=== PATIENT | male | born 1995 | race Two or more races ===

== ENCOUNTER 2021-10-14 09:37 | Day surgery (SDC) | payer OTHER, SELFPAY ==
[2021-10-14 09:46] VITALS: BP 120/76; PULSE 76; RESP 16; TEMP 36.2; O2SAT 74; BMI 29.9
--- NOTE | 2021-10-14 10:23 | ED.GENADULT ---
HPI - General Adult General Time Seen by Provider: 10:23 Date Seen: 10/14/21 Chief complaint: Abdominal Pain Stated complaint: URQ Pain Time Seen by Provider: 10/14/21 10:22 Source: patient and RN notes reviewed Mode of arrival: ambulatory Limitations: language barrier (Seen with the aid of a [employer] co founder) History of Present Illness HPI narrative: Patient is a 25-year-old male coming in with right upper quadrant abdominal pain. Started this morning. He has not ate or drank anything, no vomiting. It is not going away. He has not tried anything for the pain. Had an episode maybe about 6 months ago but it was not as severe. He did have a bowel movement this morning thinking that maybe that would alleviate the pain. With wiping there was a little blood on the tissue. There was some pain with defecation at the time. He has noted no fevers chills, has not been sick with any cough or cold symptoms. He has had no prior abdominal surgeries. He has not had any urinary symptoms. He ate a normal meal last night. Does drink some alcohol. He points to the pain in the right upper quadrant and seems to be constant since this morning. Denies any trauma. He believes his dad has had his gallbladder out, either his mama or his dad has possibly had their appendix out as well. He is not aware of any family history of kidney stones. Related Data Home Medications Medication Instructions Recorded Confirmed No Known Home Medications 10/14/21 10/14/21 Allergies Allergy/AdvReac Type Severity Reaction Status Date / Time No Known Drug Allergies Allergy Verified 10/14/21 09:57 Review of Systems Status of ROS: Reports: 10 or more systems reviewed and unremarkable except as noted in History and [facility] History (Updated 10/14/21 @ 13:51 by Philomena Barfield MD) No significant past medical history Surgical History (Updated 10/14/21 @ 10:23 by Teri Hawkins RN) No significant past surgical history Social History (Updated 10/14/21 @ 13:27 by Lucina Bentley MD) 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 Smoking Status: Never smoker Do you use any of these nicotine containing products: None Second hand tobacco smoke exposure: No How often do you have a drink containing alcohol: 2-3 times a week How many standard drinks containing alcohol do you have on a typical day: 10 or more How often do you have six or more drinks on one occasion: Weekly AUDIT-C Alcohol total score: 10 Non-prescribed substance use: denies use service: No Exam Const: Vital Signs, click to edit/add: Vital Signs - 24 hr 10/14/21 09:46 10/14/21 11:14 10/14/21 13:23 Temperature 97.2 F L 98.3 F Pulse Rate [Right Pulse Oximeter] 76 77 77 Respiratory Rate 16 16 18 Blood Pressure [Le ft Upper Arm] 102/70 Blood Pressure [Ri ght Upper Arm] 120/76 Pulse Oximetry 74 L 97 97 Documenting provider has reviewed patient's vital signs: yes Common normals: no apparent distress, average body habitus, oriented x3, no limitations, healthy appearing and alert General appearance: cooperative, comfortable and well kempt Nutritional appearance: overweight (Very mildly) HENMT: Common normals: normocephalic, head/scalp atraumatic, hearing grossly normal bilaterally, external ears normal, external nose normal, nasal mucous membranes and turbinates normal, moist oral mucous membranes, oropharynx normal and dentition normal Head and scalp: normocephalic and atraumatic Nose: external nose normal and nasal mucous membranes and turbinates normal External ear: external ears normal Eye: Common normals: PERRL, EOMs intact bilaterally, conjunctivae normal and no scleral icterus Conjunctiva: conjunctiva(e) normal Pupil: PERRL Neck & C-Spine: Common normals: full ROM, no lymphadenopathy, supple, no meningeal signs, no JVD and thyroid normal Thyroid: thyroid normal Resp: Common normals: normal respiratory effort, no retractions, no use of accessory muscles and clear to auscultation bilaterally Auscultation: clear to auscultation bilaterally Cardio: Common normals: no JVD, regular rate, regular rhythm, S1 normal heart sound, S2 normal heart sound, no gallops, no clicks and no murmurs Rate: regular rate Rhythm: regular rhythm Heart sounds: S1 normal and S2 normal GI: Common normals: Normal to inspection, nondistended, normoactive bowel sounds present, soft to palpation, no hepatosplenomegaly and no masses Palpation: soft, tender (But no rebound or guarding noted) Details: RUQ and no hepatosplenomegaly Extremity: Common normals: normal to inspection, full ROM, normal capillary refill, no joint enlargement, no clubbing, cyanosis or edema, no calf tenderness and no pedal edema Neuro: Common normals: oriented x3 Sensorium/orientation: alert Meningeal signs: no meningeal signs Gait (neuro): normal gait Psych: Appearance: well kempt Course Course Hospital Course: Patient certainly is exhibiting a right upper quadrant and right lower quadrant tenderness seems to be throughout that right side. In my differential gallbladder pathology as well as consideration for appendicitis with an atypical IIA are possible etiologies here. Will rule out surgical intra-abdominal pathology. Am going to start with ultrasound of his right upper quadrant and may need to proceed to CT imaging. We will do a full complement of labs, start some IV fluids. I will give him 4 mg IV Zofran for his nausea and 15 mg IV Toradol to help with discomfort. Reevaluation(s) Reevaluation #1: Patient will be going to surgery at 4:00 p.m. today. He will likely go over to preoperative area before surgery. Time: 13:50 Consultations Consultation #1: Dr. Bentley is here to consult on this patient. His preliminary ultrasound is that there is gallbladder sludge, normal wall thickness, normal common bile duct, fatty liver. He likely has acute cholecystitis and will need a cholecystectomy. Time: 12:10 Vital Signs Vital signs: Initial Vital Signs Temperature 97.2 F L 10/14/21 09:46 Temperature Source Temporal Artery Scan 10/14/21 09:46 Pulse Rate 76 10/14/21 09:46 Respiratory Rate 16 10/14/21 09:46 Blood Pressure 120/76 10/14/21 09:46 Blood Pressure Mean 90 10/14/21 09:46 Blood Pressure Position Sitting 10/14/21 09:46 Pulse Oximetry 74 L 10/14/21 09:46 Oxygen Delivery Method 10/14/21 09:46 Vital Signs Temperature 97.2 F L 10/14/21 09:46 Pulse Rate 76 10/14/21 09:46 Respiratory Rate 16 10/14/21 09:46 Blood Pressure 120/76 10/14/21 09:46 Pulse Oximetry 74 L 10/14/21 09:46 Temperature 98.3 F 10/14/21 13:23 Pulse Rate 77 10/14/21 13:23 Respiratory Rate 18 10/14/21 13:23 Blood Pressure 102/70 10/14/21 13:23 Pulse Oximetry 97 10/14/21 13:23 Medical Decision Making Lab Data Lab results reviewed: Yes I reviewed the patient's lab results Labs: Lab Results 10/14/21 10/14/21 10/14/21 Range/Units 10:55 10:55 10:55 WBC 12.62 H (4.50-11.00) K/uL RBC 5.76 (4.30-5.90) m/uL Hgb 16.8 (13.5-17.5) gm/dL Hct 48.6 (37.0-53.0) % MCV 84 (80-100) fL MCH 29 (26-34) pg MCHC 35 (32-36) gm/dL RDW Coeff of Paul 12.1 (11.5-15.5) % Plt Count 240 (140-440) K/uL Neut % (Auto) 85.4 H (42.0-72.0) % Lymph % (Auto) 9.1 L (20-44) % [place] % (Auto) 5.2 (0.0-11.0) % Eos % (Auto) 0.1 (0.0-7.0) % Baso % (Auto) 0.1 (0.0-3.0) % Neut # (Auto) 10.80 H (1.7-7.0) K/uL Lymph # (Auto) 1.10 (0.90-2.90) K/uL [place] # (Auto) 0.70 (0.00-0.90) K/UL Eos # (Auto) 0.00 (0.00-0.50) K/uL Baso # (Auto) 0.00 (0.00-0.30) K/uL Abs Immat Gran (auto) 0.01 (0.00-0.30) K/uL Sodium 138 (135-149) mmol/L Potassium 4.1 (3.6-5.1) mmol/L Chloride 106 (96-114) mmol/L Carbon Dioxide 22 (20-32) mmol/L BUN 12 (5-24) mg/dL Creatinine 0.7 (0.5-1.5) mg/dL Estimated Creat Clear 144.31 Estimated GFR 130 ml/min Glucose 105 (60-115) mg/dL Lactate 2.3 H (0.5-1.9) mmol/L Calcium 9.0 (8.4-10.6) mg/dL Total Bilirubin 0.3 (0.1-1.5) mg/dL AST 57 H (12-35) U/L ALT 129 H (4-50) U/L Alkaline Phosphatase 132 (40-150) U/L C-Reactive Protein < 0.5 L (0.5-1.0) mg/dL Total Protein 8.0 (6.0-8.3) g/dL Albumin 4.7 (3.3-5.0) g/dL Lipase 37 (23-300) U/L SARS-CoV-2 (PCR) (Negative) 10/14/21 Range/Units 10:55 WBC (4.50-11.00) K/uL RBC (4.30-5.90) m/uL Hgb (13.5-17.5) gm/dL Hct (37.0-53.0) % MCV (80-100) fL MCH (26-34) pg MCHC (32-36) gm/dL RDW Coeff of Paul (11.5-15.5) % Plt Count (140-440) K/uL Neut % (Auto) (42.0-72.0) % Lymph % (Auto) (20-44) % [place] % (Auto) (0.0-11.0) % Eos % (Auto) (0.0-7.0) % Baso % (Auto) (0.0-3.0) % Neut # (Auto) (1.7-7.0) K/uL Lymph # (Auto) (0.90-2.90) K/uL [place] # (Auto) (0.00-0.90) K/UL Eos # (Auto) (0.00-0.50) K/uL Baso # (Auto) (0.00-0.30) K/uL Abs Immat Gran (auto) (0.00-0.30) K/uL Sodium (135-149) mmol/L Potassium (3.6-5.1) mmol/L Chloride (96-114) mmol/L Carbon Dioxide (20-32) mmol/L BUN (5-24) mg/dL Creatinine (0.5-1.5) mg/dL Estimated Creat Clear Estimated GFR ml/min Glucose (60-115) mg/dL Lactate (0.5-1.9) mmol/L Calcium (8.4-10.6) mg/dL Total Bilirubin (0.1-1.5) mg/dL AST (12-35) U/L ALT (4-50) U/L Alkaline Phosphatase (40-150) U/L C-Reactive Protein (0.5-1.0) mg/dL Total Protein (6.0-8.3) g/dL Albumin (3.3-5.0) g/dL Lipase (23-300) U/L SARS-CoV-2 (PCR) Negative SARS-CoV-2 (Negative) Imaging Data US - abdomen: Attestation: I have reviewed the pertinent imaging results. Radiologist's impression: Patient: ANGLE GLOVER Facility:?[facility] Patient ID:?[id number] Site Patient ID:?[id number]. Site :?[id number] Study:?US Abdomen/Pelvis -10/14/2021 11:45:46 AM Ordering Physician:Jackie Quach Final Report: Indication: Right upper quadrant pain Technique: Sonography of the abdomen was performed limited to the structures discussed below Comparison: None Findings: The liver is dense, heterogeneous and hyperechoic with decreased sound through transmission. No focal mass or biliary ductal dilatation. Consistent with fatty infiltration. There are both geographic and focal areas of sparing incidentally noted. The pancreas was poorly seen due to overlying bowel gas. The portions visualized appear normal The right kidney is unremarkable in size and appearance. The right kidney measures 9.7 x 5.1 x 5.5 centimeters. The proximal aorta appears normal at 5 centimeters. There is mobile sludge within the gallbladder. Wall thickness is normal at 2 millimeters. No pericholecystic fluid. No sonographic Chau`s sign. The duct measures 6 millimeters which is top normal for a patient this age Impression: 1. Abnormal hepatic echotexture consistent with fatty infiltration. 2. Gallbladder sludge but no indication of acute cholecystitis. Wall thickness is normal. No pericholecystic fluid or sonographic Chau`s sign 3. Top-normal size common bile duct at 6 millimeters. Critical Care Time Critical Care Time Critical Care Time: No Discharge Plan Discharge Clinical Impression: Cholecystitis Patient Disposition: Admitted As Inpatient Condition: Unchanged
--- NOTE | 2021-10-14 10:35 | CRLHL7_ITS ---
For Patients: As a result of the Century Cures Act, medical imaging exams and procedure reports are released immediately into your electronic medical record. You may view this report before your referring provider. If you have questions, please contact your health care provider. Indication: Right upper quadrant pain Technique: Sonography of the abdomen was performed limited to the structures discussed below Comparison: None Findings: The liver is dense, heterogeneous and hyperechoic with decreased sound through transmission. No focal mass or biliary ductal dilatation. Consistent with fatty infiltration. There are both geographic and focal areas of sparing incidentally noted. The pancreas was poorly seen due to overlying bowel gas. The portions visualized appear normal The right kidney is unremarkable in size and appearance. The right kidney measures 9.7 x 5.1 x 5.5 centimeters. The proximal aorta appears normal at 5 centimeters. There is mobile sludge within the gallbladder. Wall thickness is normal at 2 millimeters. No pericholecystic fluid. No sonographic Chau`s sign. The duct measures 6 millimeters which is top normal for a patient this age Impression: 1. Abnormal hepatic echotexture consistent with fatty infiltration. 2. Gallbladder sludge but no indication of acute cholecystitis. Wall thickness is normal. No pericholecystic fluid or sonographic Chau`s sign 3. Top-normal size common bile duct at 6 millimeters. Dictated by Elias Hutchison MD @ 10/14/2021 12:14:58 PM (Electronically Signed)
[2021-10-14 11:03] LABS: Lactate* 2.3 mmol/L (0.5-1.9)
[2021-10-14 11:06] LABS: Basophils Percent Auto 0.1 % (0.0-3.0); Eosinophils Percent Auto 0.1 % (0.0-7.0); Hematocrit 48.6 % (37.0-53.0); Hemoglobin* 16.8 gm/dL (13.5-17.5); Immature Granulocytes Abs Auto 0.01 K/uL (0.00-0.30); Lymphocytes Percent Auto 9.1 % (20-44); Mean Corpuscular HGB Conc 35 gm/dL (32-36); Mean Corpuscular Hemoglobin 29 pg (26-34); Mean Corpuscular Volume 84 fL (80-100); Monocytes Percent Auto 5.2 % (0.0-11.0); Neutrophils Percent Auto 85.4 % (42.0-72.0); Platelet Count* 240 K/uL (140-440); RDW Coefficient of Variation % 12.1 % (11.5-15.5); Red Blood Count 5.76 m/uL (4.30-5.90); White Blood Count* 12.62 K/uL (4.50-11.00)
[2021-10-14] MEDS: 0.9 % SODIUM CHLORIDE 500 ML 500 ML IV (11:06)
[2021-10-14] MEDS: KETOROLAC 15 MG/ML inj IVP (11:07)
[2021-10-14 11:09] LABS: Slide Review Reflex No
[2021-10-14] MEDS: ONDANSETRON 2 MG/ML inj 4 MG IVP (11:11)
[2021-10-14 11:14] VITALS: PULSE 77; RESP 16; O2SAT 97
[2021-10-14 11:20] LABS: Chloride* 106 mmol/L (96-114)
[2021-10-14 11:21] LABS: Albumin* 4.7 g/dL (3.3-5.0); Sodium* 138 mmol/L (135-149)
[2021-10-14 11:22] LABS: Potassium* 4.1 mmol/L (3.6-5.1)
[2021-10-14 11:23] LABS: Creatinine* 0.7 mg/dL (0.5-1.5); Est. Creatinine Clearance* 144.31; Estimated Glomerular Filt Rate 130 ml/min
[2021-10-14 11:24] LABS: Alanine Aminotransferase* 129 U/L (4-50); Alkaline Phosphatase* 132 U/L (40-150); Aspartate Amino Transferase* 57 U/L (12-35); Bilirubin Total* 0.3 mg/dL (0.1-1.5); Blood Urea Nitrogen* 12 mg/dL (5-24); Carbon Dioxide* 22 mmol/L (20-32); Lipase* 37 U/L (23-300)
[2021-10-14 11:25] LABS: Glucose* 105 mg/dL (60-115)
[2021-10-14 11:27] LABS: C Reactive Protein* < 0.5 mg/dL (0.5-1.0)
[2021-10-14 12:45] LABS: SARS PCR* Negative SARS-CoV-2 (Negative)
[2021-10-14 13:23] VITALS: BP 102/70; PULSE 77; RESP 18; TEMP 36.8; O2SAT 97
--- NOTE | 2021-10-14 13:25 | PM.GSHP ---
History of Present Illness History of Present Illness Date Seen: 10/14/21 Chief complaint: URQ Pain Narrative: Jose Alejandro Tomlinson is a 25 year old male who presents to the emergency department today with severe right upper quadrant pain which began suddenly at 7:00 a.m.. Not come on after eating. He maybe has had pain like this approximately 6 months ago but it was very mild. He has no nausea, vomiting or fever. The pain does not radiate anywhere all such as his back or lower abdomen. He denies chest pain or shortness of breath. The pain is worse with movement and better when he is sitting still. He has no diarrhea or change in bowel habits. No urinary symptoms. 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 Status: Never smoker Do you use any of these nicotine containing products: None Second hand tobacco smoke exposure: No How often do you have a drink containing alcohol: 2-3 times a week How many standard drinks containing alcohol do you have on a typical day: 10 or more How often do you have six or more drinks on one occasion: Weekly AUDIT-C Alcohol total score: 10 Non-prescribed substance use: denies use service: No Meds Home Medications and Allergies Home Medications Medication Instructions Recorded Confirmed Type No Known Home Medications 10/14/21 10/14/21 History Allergies Allergy/AdvReac Type Severity Reaction Status Date / Time No Known Drug Allergies Allergy Verified 10/14/21 09:57 Exam Narrative: Exam Narrative: General appearance: Alert, cooperative, and in no distress Eyes: PERRLA, eye lids clear, and sclera white HENT Head: Normocephalic Ears: External ears normal Pulmonary: Clear to auscultation bilaterall Cardiovascular Heart: Regular rate and rhythm Extremities: warm and well perfused Gastrointestinal Abdominal: Soft. Tender in the mid to right upper abdomen without guarding or rebound. No tenderness in the right lower quadrant. No scars or hernias noted. Musculoskeletal: Extremities: Upper: Both upper extremities have normal joint range of motion and intact strength. Lower: Both lower extremities have normal joint range of motion and intact strength. Skin: Normal skin color, texture, and turgor. No rashes or lesions. Neurologic: No focal deficits Psychiatric: Alert, oriented, cooperative, normal affect. Const: Vital Signs, click to edit/add: Vital Signs - 24 hr 10/14/21 09:46 10/14/21 11:14 10/14/21 13:23 Temperature 97.2 F L 98.3 F Pulse Rate [Right Pulse Oximeter] 76 77 77 Respiratory Rate 16 16 18 Blood Pressure [Le ft Upper Arm] 102/70 Blood Pressure [Ri ght Upper Arm] 120/76 Pulse Oximetry 74 L 97 97 Results Results Labs: White blood cell count is 12.6. Lactate is 2.3 Total bilirubin 0.3 AST 57 ALT 129 Alk phos 132 CRP less than 0.5 COVID negative Abdominal ultrasound report/results: report reviewed and image reviewed Additional studies: Ultrasound of the abdomen shows gallbladder sludge without pericholecystic fluid or gallbladder wall thickening. Top normal appearing common bile duct at 6 mm. Fatty infiltration of the liver. Assessment and Plan Assessment and plan (1) Cholecystitis: Status: Acute (2) Fatty liver: Status: Acute (3) Elevated liver transaminase level: Status: Acute Plan The patient is a 25-year-old male with likely acute cholecystitis and possible choledocholithiasis. I explained that the treatment for this is laparoscopic cholecystectomy. We discussed the procedure as well as risks and benefits of surgery which include bleeding, infection, bile leak, conversion to open or injury to other structures, specifically the common bile duct. We also discussed recovery. Because of the patient's elevated liver enzymes/dilated common bile duct, I explained that there is concern for choledocholithiasis. We discussed an intraoperative cholangiogram followed by attempts to remove the stone by either flushing or laparoscopic common bile duct exploration. They understand that if unsuccessful, an ERCP may be necessary. He and I spoke at length with the use of an emergency response coordinator. He asked about whether not surgery was absolutely necessary since he did feel better after getting pain medication. I explained that I did think given his white count and dilated common bile duct that he probably has some degree of cholecystitis site this not being evident on imaging and also I was concerned about choledocholithiasis given the common bile duct of almost 6 mm with his young age. After discussion with his family he agreed to proceed with surgery. We will plan on surgery today pending OR availability. If not we would plan on surgery tomorrow. The patient is agreeable with this plan. He signed informed consent through the use of an emergency response coordinator.
[2021-10-14 14:06] VITALS: BP 116/71; PULSE 77; RESP 18; TEMP 36.2; O2SAT 98
[2021-10-14] MEDS: LACTATED RINGERS 1000 ML 1,000 ML 35 ML IV (14:25)
--- NOTE | 2021-10-14 15:05 | SUR.PREOP ---
[employer] And Release Manager used for pre surgical admission.
--- NOTE | 2021-10-14 19:01 | PC.NURSE ---
Discharge-- Pleasant and cooperative, alert and oriented patient discharged to home ambulatory this evening at approximately 1900. VSS and pt is afebrile. SPO2 maintained >90% on RA. Pt c/o abdominal pain which he rated from 4-5 out of 10 this evening but declined medication for it. Discharge education provided in Occitan and verbally with ipad historic interpreter. All questions answered and SL was removed with tip intact.
== END 2021-10-14 19:05 | disposition home or self-care (01) ==
LOC: ED 13:51 → SS 13:55 → MEDSURG 13:55
PROVIDERS: Emergency Provider Family Medicine; Visit Provider Surgery
DX: K81.0 Acute cholecystitis (principal); R10.11 Right upper quadrant pain; K76.0 Fatty (change of) liver, not elsewhere classified
CPT/HCPCS: 36415; 76705; 80053; 81001; 83605; 83690; 85025; 86140; 87635; 99284; J0330; J1885; J2250; J2405; J2704; J3010; J7120

== ENCOUNTER 2021-10-15 11:24 | Day surgery (SDC) | payer OTHER, SELFPAY ==
[2021-10-15] VITALS (14 sets, daily range): BP systolic 114–129; BP diastolic 63–79; PULSE 68–871; RESP 16–20; TEMP 36.3–36.9; O2SAT 91–98; BMI 30.7
[2021-10-15] MEDS: LACTATED RINGERS 1000 ML 1,000 ML 100 ML IV (12:00)
[2021-10-15] MEDS: SODIUM CHLORIDE 0.9 % (FLUSH) 10 ML SYRINGE IVF (12:14)
--- NOTE | 2021-10-15 14:28 | CRLHL7_ITS ---
For Patients: As a result of the Century Cures Act, medical imaging exams and procedure reports are released immediately into your electronic medical record. You may view this report before your referring provider. If you have questions, please contact your health care provider. INDICATION: Post cholecystectomy intraoperative cholangiogram. TECHNIQUE: Intraoperative C-arm fluoroscopy. IMPRESSION: Intraoperative cholangiogram was obtained. No sign of retained stone. No sign of contrast extravasation to suggest biliary leak. Fluoroscopy time 26.1 seconds. One image was captured. Dictated by Addison Najera MD @ 10/15/2021 3:50:52 PM (Electronically Signed)
--- NOTE | 2021-10-15 14:41 | SUR.OPER ---
PATIENT QUESTIONS ANSWERED SATISFACTORILY PREOPERATIVELY USING AN REPAIR WELDER ON A PHONE.? PATIENT BROUGHT TO OR #1 PER CART.? Patient positioned supine on OR #1 bed.?The perioperative?team supported arms bilaterally on arm boards.? Final approval of positioning by surgeon.?
--- NOTE | 2021-10-15 15:26 | W.ANESCHARGE ---
Anesthesia Charges Start Date/Time Anesthesia Start Date: 10/15/21 Anesthesia Start Time: 13:36 Stop Date/Time Anesthesia Stop Date: 10/15/21 Anesthesia Stop Time: 15:22 Summary Emergency: No
--- NOTE | 2021-10-15 15:26 | PM.GSPRC ---
Operative Note Date of procedure: 10/15/21 Type of Procedure: 1. Laparoscopic cholecystectomy 2. Intraoperative cholangiogram 3. Laparoscopic appendectomy Procedure Description: After discussing the risks and benefits of the procedure, the patient signed informed consent.? The operative site was marked and the patient was brought to the operating room and placed on the operating table in supine position.? Care was taken to pad the patient's pressure points.?? The patient was then intubated by anesthesia.?? The operative site was then prepped and draped in the usual sterile fashion.? A time-out was then performed. Entrance to the abdomen was gained via a 5 mm Visiport in the left upper quadrant. The abdomen was insufflated and briefly surveyed for signs of injury. There was none. A 10 mm umbilical port was placed as well as 2 working ports along the right costal margin, all under direct vision. The patient was then placed in reverse Trendelenburg position with the right side up. The gallbladder fundus was grasped and retracted cephalad. The infundibulum was grasped. A combination of hook cautery and blunt dissection was used to carefully dissect out the cystic duct and artery until they could clearly be seen entering the gallbladder without any intervening structures. The cystic artery was clipped with 2 clips proximal 1 clip distal and divided. The cystic duct was somewhat dilated. Clip was placed on the proximal aspect of the duct and a ductotomy was then created. Through this a cholangiocatheter was then advanced. A saline leak test was performed. The patient was laid flat and fluoro was then brought into the field. A cholangiogram was then performed. There was brisk filling of the right and left hepatic ducts as well as the common bile duct and duodenum without any filling defects. Once this was done the cholangiocatheter was removed and the patient was placed back into appropriate position and the cystic duct was clipped with 2 clips distally and divided. The gallbladder was then completely removed off of the liver bed. This was then removed from the abdomen. There was no bleeding noted in liver bed. Some bile that had spilled during the cholangiogram was then irrigated and aspirated from the abdomen. I then turned my attention to the right lower quadrant. The appendix was noted. It was moderately dilated and very mildly injected though it felt soft. Because of this I elected to remove it. I upsized the umbilical port to a 12 mm port to facilitate a stapler. Once this was done, a small amount of dissection was necessary to free the appendix from the surrounding pelvic attachments. The appendix was grasped and pulled into view. A mesenteric window was created between the base of the appendix and the mesoappendix. An Endo-GE gold load stapler was then used to transect the appendix at its base. A gold load stapler was then used to divide the mesoappendix. The staple lines were inspected for bleeding. There was none. The appendix was then removed from the abdomen using an Endo-Catch bag. The specimen was sent to pathology. The ports were then removed after desufflating the abdomen and the 12 mm port site fascia was closed with 0 Vicryl. The skin was then closed with absorbable subcuticular suture. Sterile dressings were then applied. Instrument sponge and needle counts were correct at the end of the case. The patient was then woken and transferred to the PACU in stable condition. ? The patient tolerated the procedure well. Findings: Normal cholangiogram Mildly dilated and injected appendix Anesthesia: GETA Surgeon: Lucina Bentley MD Estimated blood loss (mL): 5 Condition: stable Disposition: PACU
--- NOTE | 2021-10-15 15:32 | W.ANESCHARGE ---
Anesthesia Charges Start Date/Time Anesthesia Start Date: 10/15/21 Anesthesia Start Time: 13:36 Stop Date/Time Anesthesia Stop Date: 10/15/21 Anesthesia Stop Time: 15:22 Summary Emergency: No
[2021-10-15] MEDS: HYDROCODONE-ACETAMIN 5-325 MG 1 TAB PO (16:07)
[2021-10-15] MEDS: LACTATED RINGERS 1000 ML 1,000 ML 35 ML IV (16:11)
--- NOTE | 2021-10-15 16:45 | SUR.PHASEII ---
Pt came from PACU with 600cc c/o in iv fluids infusing well
== END 2021-10-15 17:12 | disposition home or self-care (01) ==
LOC: OR 11:29
PROVIDERS: Visit Provider Surgery
PROC: 0FT44ZZ Resection of Gallbladder, Percutaneous Endoscopic Approach (ICD-10-PCS; CPT 47563; principal; 2021-10-15 13:45)
DX: K81.0 Acute cholecystitis (principal); K81.1 Chronic cholecystitis; K35.80 Unspecified acute appendicitis
CPT/HCPCS: 47563; 44970; 00790; 74300; 88304; A9270; C1769; J7120

== ENCOUNTER 2021-10-28 14:37 | Outpatient (CLI) | payer OTHER, SELFPAY ==
[2021-10-28 17:51] LABS: Albumin* 4.6 g/dL (3.3-5.0)
[2021-10-28 17:54] LABS: Alanine Aminotransferase* 134 U/L (4-50); Alkaline Phosphatase* 141 U/L (40-150); Aspartate Amino Transferase* 70 U/L (12-35); Bilirubin Direct* 0.3 mg/dL (0.0-0.5); Bilirubin Total* 0.4 mg/dL (0.1-1.5); Total Protein* 7.6 g/dL (6.0-8.3)
== END 2021-10-28 14:38 | disposition home or self-care (01) ==
LOC: NFLDREF 14:37
PROVIDERS: Visit Provider Surgery
DX: K76.0 Fatty (change of) liver, not elsewhere classified (principal)
CPT/HCPCS: 80076

== ENCOUNTER 2023-07-07 06:24 | Day surgery (SDC) | payer OTHER, SELFPAY ==
[2023-07-07] VITALS (12 sets, daily range): BP systolic 116–140; BP diastolic 63–92; PULSE 4–100; RESP 16–22; TEMP 36.3–36.8; O2SAT 93–96; BMI 30.4
[2023-07-07] MEDS: LACTATED RINGERS 1000 ML 1,000 ML 100 ML IV (06:00)
--- NOTE | 2023-07-07 06:53 | SUR.PREOP ---
miner placer used for complete admission cousin here who speaks kinyarwanda
[2023-07-07] MEDS: SODIUM CHLORIDE 0.9 % (FLUSH) 10 ML SYRINGE IVF (07:16)
--- NOTE | 2023-07-07 07:40 | W.PM.H&PU ---
History & Physical Update History & Physical Update H&P Reviewed and patient assessed: No changes noted
[2023-07-07] MEDS: CEFAZOLIN 2 GM INJ IVP (07:45)
[2023-07-07] MEDS: BUPIVACAINE 0.25% 30 ML INJECTION (10:22)
--- NOTE | 2023-07-07 10:30 | PM.GSPRC ---
Operative Note Date of procedure: 07/07/23 Pre-op diagnosis: Left inguinal hernia Post-op diagnosis: Same, large indirect Type of Procedure: Laparoscopic left inguinal hernia, large incarcerated fat Indications: Patient is a 27-year-old male who suffered a left inguinal hernia while on the job. Due to his symptoms he did decide to pursue operative intervention. Risks and benefits of operative intervention were discussed at length with the patient. Risks included but was not limited to: Bleeding, infection, risk of damage to surrounding structures, possible need for additional procedures, possible need to convert to an open operation, risk of recurrence and postoperative complications such as pneumonia, pulmonary emboli or [place]. All questions and concerns were addressed with the patient agreeing to proceed. Procedure Description: After discussing the risks and benefits of the procedure, the patient signed informed consent.? The operative site was marked and the patient was brought to the operating room and placed on the operating table in supine position.? Care was taken to pad the patient's pressure points.?? The patient was then intubated by anesthesia.?? The operative site was then prepped and draped in the usual sterile fashion.? A time-out was then performed. A curvilinear incision was made below the umbilicus. Dissection was carried down to subcutaneous tissue until the anterior rectus fascia was encountered. This was incised off the midline. The rectus muscles were then retracted exposing the posterior fascia. A space maker port with a dissecting balloon was then introduced. The preperitoneal space was inflated under direct vision. The balloon was then removed and the preperitoneal space insufflated. A 10 mm 30 degree scope was then advanced and the area was surveyed for bleeding. Dissection began on the left side. Elpidio's ligament and the pubic bone was exposed medially. Following this dissection was carried out laterally. A large indirect defect was noted with incarcerated fat. The sac was dissected free from the cord structures using a combination of sharp and blunt dissection. The sac was difficult to reduce secondary to incarcerated fat. This was eventually reduced with outer pressure from the volunteer services assistant and retraction on the hernia sac laparoscopically. Once the hernia sac was completely reduced, the cord structures were dissected circumferentially. A few veins which were feeding the hernia sac were clipped and transected to help assist with hemostasis. After assurance of excellent hemostasis a piece of Parietex mesh for the appropriate side was placed into the abdomen. This was positioned around the cord structures. A Tacker was used to attach the mesh medially at Elpidio's ligament. Once this was completed the sac was placed on top of the mesh and the preperitoneal space desufflated under direct vision. The ports were removed. The fascia from the infraumbilical port was closed with 0 Vicryl. The skin incisions were closed with absorbable subcuticular suture. Sterile dressings were then applied. The scrotum was examined to ensure that both testicles were down. Instrument sponge and needle counts were correct at the end of the case. Findings: Large indirect left inguinal hernia with incarcerated intra-abdominal fat Anesthesia: EMILIO Surgeon: Amanda Ware MD Estimated blood loss (mL): 5 Condition: stable Disposition: PACU
--- NOTE | 2023-07-07 10:52 | W.ANESCHARGE ---
Anesthesia Charges Start Date/Time Anesthesia Start Date: 07/07/23 Anesthesia Start Time: 07:36 Stop Date/Time Anesthesia Stop Date: 07/07/23 Anesthesia Stop Time: 10:46
[2023-07-07] MEDS: HYDROCODONE-ACETAMIN 5-325 MG 1 TAB PO (11:26)
[2023-07-07] MEDS: KETOROLAC 15 MG/ML inj IVP (11:27)
--- NOTE | 2023-07-07 11:35 | SUR.PHASEII ---
Discharged instructions gone over with pt and cousin Alexander with spray foam installer both understood instructions
== END 2023-07-07 12:24 | disposition home or self-care (01) ==
PROVIDERS: PCP Family Medicine; Visit Provider Surgery
PROC: (CPT 49650; principal; 2023-07-07 07:30)
DX: K40.30 Unilateral inguinal hernia, with obstruction, without gangrene, not specified as recurrent (principal)
CPT/HCPCS: 49650; 00830; T1013; A9270; C1781; J0330; J0665; J0690; J1100; J1885; J2250; J2405; J2704; J2710; J3010; J7120

== ENCOUNTER 2024-10-24 09:08 | Emergency (ER) | payer OTHER, SELFPAY ==
[2024-10-24 09:32] VITALS: BP 130/86; PULSE 76; RESP 18; TEMP 36.3; O2SAT 99; BMI 31.5
--- NOTE | 2024-10-24 10:13 | CRLHL7_ITS ---
For Patients: As a result of the Cures Act, medical imaging exams and procedure reports are released immediately into your electronic medical record. You may view this report before your referring provider. If you have questions, please contact your health care provider. Indication: Pain/burning near right buttock/tailbone, goes down nerve behind right knee, seen in urgent care on 09/06/24 for hurting lumbar spine Technique: Three views of the sacrum and coccyx. Comparison: None. Findings: Left pelvis surgical clips. Postsurgical changes from laparoscopic left inguinal hernia repair. No acute displaced fracture or malalignment is seen. Impression: No acute displaced fracture or malalignment. Dictated by Herman Escobar MD @ 10/24/2024 10:58:03 AM (Electronically Signed)
--- NOTE | 2024-10-24 10:38 | ED_ITS ---
HPI - Back Pain/Injury General Date Seen: 10/24/24 Chief Complaint: Back Injury/Pain Stated Complaint: back pain Time Seen by Provider: 10/24/24 09:49 Source: patient Mode of arrival: ambulatory Limitations: no limitations History of Present Illness HPI Narrative: Patient is a 28-year-old male presenting to the emergency department for low back pain. He states about 2 month ago he was working he developed low back pain. He went to urgent care after it occurred. States at that time he bent over and will he was standing up felt a pop in his back. States today he bent over and again felt something in his low back. She has pain is not as bad as a was 2 months ago but still is very painful. Previously used heating pad and pain patches which help some and pain did improve before he hurt himself again today at work. Denies saddle anesthesia, urinary incontinence, urinary retention. Related Data Previous Rx's ?Medication ?Instructions ?Recorded oxycodone 5 mg tablet 5 mg PO Q6H PRN pain #12 tab s 10/24/24 Allergies Allergy/AdvReac Type Severity Reaction Status Date / Time No Known Drug Allergies Allergy Verified 09/06/24 12:20 Review of Systems Narrative: Pertinent systems reviewed and were negative unless stated in HPI PFSH PFSH Medical History Slovak speaking patient Cholecystitis ?K81.9 - Cholecystitis, unspecified (ICD-10) No significant past medical history Surgical History History of appendectomy ?Z90.49 - Acquired absence of other specified parts of digestive tract (ICD- 10) History of cholecystectomy ?Z90.49 - Acquired absence of other specified parts of digestive tract (ICD- 10) Family History Father Prostate cancer, Onset Age: 58 Social History Narrative: , concrete labor, 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 What is your current living situation?: I presently have a place to live Problems where you live: no known problems In the past 12 months, utilities in danger of being shut off: no In past 12 months, lack of transportation kept you from medical appts, meetings, work, or getting things needed for daily living: no In the past 12 mos, have been you worried that your food would run out before you had money to buy more?: declined to answer In the past 12 mos, the food you bought just didn't last and you didn't have money to buy more?: sometimes true Smoking Status: Never smoker Do you use any of these nicotine containing products: None Second hand tobacco smoke exposure: No How often do you have a drink containing alcohol: monthly or less Alcohol type: beer How many standard drinks containing alcohol do you have on a typical day: 1 or 2 How often do you have six or more drinks on one occasion: Never AUDIT-C Alcohol total score: 1 Non-prescribed substance use: denies use Caffeine: Yes How often does anyone, including family, friends and others, physically hurt you : never How often does anyone, including family, friends and others, insult or talk down to you: never How often does anyone, including family, friends and others, threaten you with harm: never How often does anyone, including family, friends and others, scream or curse at you: never service: No Health Related Social Needs: food insecurity (Z59.41) Exam Narrative: Exam Narrative: Const: Well-nourished, Well-developed, in mild distress Eyes: PERRL, no conjunctival injection, and symmetrical lids HENT: Atraumatic external nose and ears. Moist mucous membranes. MSK:Extremities w/o deformity, Normal Active ROM, pain to palpation at the base of the coccyx. Positive straight leg test on the right Skin: Warm, Dry. No rashes or lesions. Neuro: Normal Muscle tone, No focal neurological deficits. Psych: Awake, Alert, & Oriented x3. Appropriate mood and affect. Const: Vital Signs, click to edit/add: Vital Signs - 24 hr 10/24/24 09:32 Temperature 97.4 F L Pulse Rate [Pulse Oximeter] 76 Respiratory Rate 18 Blood Pressure [Ri ght Upper Arm] 130/86 Pulse Oximetry 99 Oxygen Delivery Me thod Room Air Course Vital Signs Vital signs: Initial Vital Signs Temperature 97.4 F L 10/24/24 09:32 Temperature Source Temporal Artery Scan 10/24/24 09:32 Pulse Rate 76 10/24/24 09:32 Respiratory Rate 18 10/24/24 09:32 Blood Pressure 130/86 10/24/24 09:32 Blood Pressure Mean 100 10/24/24 09:32 Blood Pressure Position Standing 10/24/24 09:32 Pulse Oximetry 99 10/24/24 09:32 Oxygen Delivery Method Room Air 10/24/24 09:32 Vital Signs Temperature 97.4 F L 10/24/24 09:32 Pulse Rate 76 10/24/24 09:32 Respiratory Rate 18 10/24/24 09:32 Blood Pressure 130/86 10/24/24 09:32 Pulse Oximetry 99 10/24/24 09:32 Oxygen Delivery Method Room Air 10/24/24 09:32 Temperature 97.4 F L 10/24/24 09:32 Pulse Rate 76 10/24/24 09:32 Respiratory Rate 18 10/24/24 09:32 Blood Pressure 130/86 10/24/24 09:32 Pulse Oximetry 99 10/24/24 09:32 Oxygen Delivery Method Room Air 10/24/24 09:32 Medications Administered Medications: Discontinued Medications Generic Name Dose Route Start Last Admin Trade Name Freq PRN Reason Stop Dose Admin Oxycodone HCl 5 mg 10/24/24 10:13 10/24/24 10:25 Oxycodone 5 Mg Tablet PO 10/24/24 10:14 5 mg ONCE ONE Administration MDM - Back Pain/Injury MDM Narrative Medical decision making narrative: Patient is a 28-year-old male presenting for low back pain. When I was examining him he is pointing to to his coccyx is were the pain was in he was tender to palpation there. Will do an x-ray to make sure there are no fractures. Of note though he also has pain to his low back with right straight leg test. Does seem like he might have a herniated disc considering this occurred while bending over both times. X-ray returned reviewed by myself and the radiologist showing no acute concerning abnormalities. At this time I do believe he is safe for discharge with some oxycodone for pain. I did tell the follow-up with primary care provider for possible physical therapy. He agrees with this plan. Imaging Data Sacrum/coccyx x-ray: Radiologist's impression: No acute displaced fracture or malalignment. Dictated by Herman Escobar MD @ 10/24/2024 10:58:03 AM Discharge Plan Discharge Clinical Impression: Low back pain Qualifiers: Chronicity: acute Back pain laterality: midline Sciatica presence: unspecified whether sciatica present Qualified Code(s): M54.50 - Low back pain, unspecified Patient Disposition: Home, Self-Care Condition: Stable Instructions: Lumbar Disc Herniation (ED) Additional Instructions: I do believe you might have a herniated disc. I recommend following up with the primary care provider for possible referral to physical therapy. Take Tylenol and ibuprofen for pain. If that is not working you can use the oxycodone. While using oxycodone do not drive heavy machinery. You can return to work but only do what is tolerated. Prescriptions: New oxycodone 5 mg tablet 5 mg PO Q6H PRN (Reason: pain) Qty: 12 0RF Follow Up/Referrals: Coco Harmon MD [Staff Physician, Family Practice] [facility]
== END 2024-10-24 11:25 | disposition home or self-care (01) ==
PROVIDERS: Emergency Provider Student in an Organized Health Care Education/Training Program; PCP Pediatrics
DX: M54.50 Low back pain, unspecified (principal)
CPT/HCPCS: 72220; 99283; A9270